=== PATIENT | male | born 1965 | race African-American/Black ===

== ENCOUNTER 2021-06-26 22:00 | Inpatient (IN) | payer OTHER ==
[~2021-06-26] VITALS: Ht 188 cm; Wt 86.2 kg
--- NOTE | ~2021-06-26 | EMS ---
[facility] [address] [place] [address] EMS Patient Care Report Name: YESSY CASTILLO Room #: REG MARILYNN Callaway#: [id number] Admission: 06/26/21 Attend Phys: Discharge: Date of : 67 Report #: [id number] THIS REPORT FOR: //name// Report Transmitted: 06/26/2021 21:44 EMS Care Summary [place], [place]/[facility] Incident [id number] @ 06/26/2021 21:29 Incident Location [address] [place] [address] Patient YESSY CASTILLO Male, 56 Years 1965 Patient Address [address] [place] [address]. Patient History Hypertension (HTN),Bipolar II Disorder, Patient Allergies No known allergies, Patient Medications None Reported, Chief Complaint CONFUSION Disposition Transported No Lights/[place] [facility] Reason Sick Person Transported To [facility] Narrative M30 was dispatched via radio for a 911 call for a sick case. Patient was a 56 y/o male complaining of confusion and unusual behavior. M30 responded with emergency lights and sirens to the scene. Before arrival on scene, all necessary PPE was donned including gloves, masks, [facility] [address] [place] [address] EMS Patient Care Report Name: YESSY CASTILLO Room #: REG MARILYNN Callaway#: [id number] Admission: 06/26/21 Attend Phys: Discharge: Date of : 67 Report #: [id number] and eye protection. On scene, patient was located in care of Pumper 37 ambulating to the ambulance. Patient was found A&Ox4 with no obvious signs of pain. Patient's ABC's revealed no immediate life threats. Pumper 37 gave patient report. M30 took over patient care. Patient stated, "I don't feel myself. I've been more forgetful lately and confused." Patient was ambulatory and walked to the bench seat in the ambulance. On the bench seat, patient was secured using safety harness. In the ambulance, patient's vitals and assessment were taken and were within normal limits. Patient was transported non-emergent to [facility]. During transport, patient report was given via radio. En route, patient was monitored and no complications occurred. Patient signed for permission to transport. Upon arrival, patient ambulated to ED triage. Triage nurse was given patient report. Nurse signed for transfer of care. Patient was left in care of staff. M30 returned in service. AbdoulAidna Justyn [id number] Initial Vitals @21:53P: 122,BP: 147/91,SpO2: 95, @21:41P: 117,R: 16,BP: 163/103,Pain: 0/10,GCS: 15,Glucose: 140,CO: 1,SpO2: 97,Revised Trauma: 12, Assessments @21:41MENTAL:Time Oriented,Event Oriented,Person Oriented,Place Oriented,SKIN:HEENT:Eyes: Left Pupil: 3-mm,Eyes: Right Pupil: 3-mm,LUNG SOUNDS:ABDOMEN:PELVIS//GI:EXTREMITIES:PULSE:NEURO: Impression Altered Mental Status Procedures @21:40 ALS Assessment Response: UnchangedSucceeded Timeline 21:,Call Received 21:,Dispatch Notified 21:29,Dispatched 21:30,En Route 21:36,On Scene 21:38,At Patient 21:40,ALS Assessment,Response: UnchangedSucceeded, [facility] [address] [place] [address] EMS Patient Care Report Name: YESSY CASTILLO [id number] Admission: 06/26/21 Attend Phys: Discharge: Date of : 67 Report #: [id number] 21:41,BP: 163/103 M,PULSE: 117,RR: 16 R,SPO2: 97 Ox,ETCO2: ,B,PAIN: 0,GCS: 15, 21:44,Depart Scene 21:53,BP: 147/91 M,PULSE: 122,RR: R,SPO2: 95 Ox,ETCO2: ,BG: ,PAIN: ,GCS: , 21:53,At Destination 22:21,Call Closed Disclaimer v1.1 Copyright 2021 [employer] This EMS Care Summary contains data elements from the applicable legal record (which may be displayed differently). It is designed to provide pertinent information for the following purposes: continuity of care, clinical quality, and state data reporting. The complete legal record is available to ED staff and administrators of the receiving hospital in [facility]'s Patient Tracker. All data is provided "as is."
[2021-06-26 22:46] LABS: ABSOLUTE NEUTROPHILS 3.2 thou/uL (1.4-8.2); BASOPHILS 1.5 % (0.0-2.0); HEMATOCRIT 40.8 % (42.0-52.0); HEMOGLOBIN 13.6 gm/dL (14.0-18.0); LYMPHOCYTES 20.1 % (24.0-44.0); MCH 33.6 pg (26.0-34.0); MCHC 33.4 g/dL (28.0-37.0); MCV 100.6 fL (80.0-100.0); PLATELET COUNT 174 thou/uL (150-400); POLYS 61.4 % (36.0-66.0); RBC 4.05 mil/uL (4.50-6.00); RDW 14.6 % (10.5-14.5); WBC 5.2 thou/uL (4.0-11.0)
[2021-06-26 23:05] LABS: ALBUMIN 3.8 g/dL (3.4-5.0); CALCIUM 8.4 mg/dL (8.5-10.1); CREATININE 1.4 mg/dL (0.7-1.3); TOTAL BILIRUBIN 0.9 mg/dL (0.2-1.0); TOTAL PROTEIN 7.8 g/dL (6.4-8.2)
[2021-06-26 23:13] LABS: POTASSIUM 2.8 mmol/L (3.5-5.1)
[2021-06-27 08:09] VITALS: BP 142/88
[2021-06-27 11:47] LABS: ABSOLUTE NEUTROPHILS 1.7 thou/uL (1.4-8.2); BASOPHILS 1.6 % (0.0-2.0); EOSINOPHILS 5.3 % (0.0-3.0); HEMATOCRIT 38.1 % (42.0-52.0); HEMOGLOBIN 12.6 gm/dL (14.0-18.0); LYMPHOCYTES 22.6 % (24.0-44.0); MCH 33.7 pg (26.0-34.0); MONOCYTES 15.7 % (1.0-8.0); PLATELET COUNT 123 thou/uL (150-400); POLYS 54.8 % (36.0-66.0); RBC 3.74 mil/uL (4.50-6.00); RDW 14.7 % (10.5-14.5); WBC 3.1 thou/uL (4.0-11.0)
[2021-06-27 11:51] LABS: CALCIUM 8.4 mg/dL (8.5-10.1); POTASSIUM 3.7 mmol/L (3.5-5.1)
--- NOTE | 2021-06-27 16:47 | NUR ---
REPORT CALLED TO Lennie STEPHEN RN.
--- NOTE | 2021-06-27 16:53 | NUR ---
PT ADMITTED RELATED TO CONFUSION, UNSTEADY GAIT, SUSPICION FOR [place] ENC. CM REVIEWED CHART AND SPOKE WITH CARE TEAM. CM ATTEMTEPD PC TO PT WITH NO ANSWER. CM TO FOLLOW UP WITH PT TO CONFIRM PLOF LIVING ARRANGEMENTS, AND DC PLANNING NEEDS. CM TO DISCUSS POSSIBE TRANSFER TO [facility]. CM FOLLOWING.
[2021-06-27 17:06] VITALS: BP 142/88
[2021-06-27 20:00] VITALS: BP 153/96
[2021-06-28 03:04] LABS: HEMATOCRIT 35.8 % (42.0-52.0); HEMOGLOBIN 12.2 gm/dL (14.0-18.0); MCH 35.1 pg (26.0-34.0); MCHC 34.1 g/dL (28.0-37.0); MCV 102.8 fL (80.0-100.0); RBC 3.48 mil/uL (4.50-6.00); RDW 14.4 % (10.5-14.5); WBC 3.3 thou/uL (4.0-11.0)
--- NOTE | 2021-06-28 03:08 | NUR ---
NURSING NOTE: SHIFT ASSESSMENT: PT ALERT AND ORIENTED X4; MOVES ALL EXTREMITIES AND FOLLOWS COMMANDS. CIWA SCORE OF 9 THIS SHIFT/ATIVAN GIVEN PER PROTOCOL. PT RESTING WITH EYES CLOSED MAJORITY OF SHIFT. DENIES PAIN. ALL VS AND ASSESSMENTS CHARTED. NO DISTRESS NOTED AT THIS TIME. WILL CONTINUE TO MONITOR.
[2021-06-28 03:41] LABS: MAGNESIUM 1.7 mg/dL (1.8-2.4); POTASSIUM 3.7 mmol/L (3.5-5.1)
[2021-06-28 04:02] VITALS: BP 154/98
[2021-06-28 07:56] VITALS: BP 133/74
[2021-06-28 11:05] VITALS: BP 136/91
[2021-06-28] MEDS ORDERED: PERCOCET 10-321 EACH PO (11:40)
[2021-06-28] MEDS ORDERED: PEPCID20 MG PO (11:41)
[2021-06-28] MEDS ORDERED: LORAZEPAM 1 MG T1 MG PO (11:41)
[2021-06-28 11:49] VITALS: BP 136/91
--- NOTE | 2021-06-28 12:35 | NUR ---
I have reviewed the documentation by GOVIND ARIZA from 06/28/21 to 06/28/21 and I concur with it. CARYL CASTANO, PT, DPT
[2021-06-28 13:33] VITALS: BP 136/91
--- NOTE | 2021-06-28 13:55 | NUR ---
ASSUMED CARE OF PATIENT AT 0700. PATIENT A&O, RA, SB ON TELE. PATIENT SCORED 5 ON MORNING CIWA, NO ATIVAN GIVEN. PAIN MEDICATION GIVEN X'S 1. PATIENT TO MN HOME WITH SELF CARE. IV AND TELE REMOVED. ALL BELONGINGS GATHERED. PATIENT ESCORTED OUT BY STAFF TO WAITING VEHICLE. PATIENT PROGRESSED TOWARD POC.
[2021-06-28 14:00] VITALS: BP 136/91
== END 2021-06-28 14:11 | disposition home or self-care (01) | DRG 896 ==
LOC: ER 22:00 → 2N 06-27 00:34 → EROBS 06-27 00:34 → ER 06-27 02:14 → EROBS 06-27 02:14 → 2N 06-27 16:59
PROVIDERS: Emergency Medicine; Nurse Practitioner Family; ADMIT Hospitalist; ATTEND Hospitalist
DX: F10.239 Alcohol dependence with withdrawal, unspecified (principal); G92.8 Other toxic encephalopathy; N17.9 Acute kidney failure, unspecified; Z20.822 Contact with and (suspected) exposure to COVID-19; G89.29 Other chronic pain; M54.9 Dorsalgia, unspecified; I10 Essential (primary) hypertension; F31.9 Bipolar disorder, unspecified; R26.89 Other abnormalities of gait and mobility; M10.9 Gout, unspecified; E83.42 Hypomagnesemia; E87.6 Hypokalemia; Z87.820 Personal history of traumatic brain injury; Z79.899 Other long term (current) drug therapy
CPT/HCPCS: 10081